=== PATIENT | male | born 1940 | race Caucasian/White ===

== ENCOUNTER → 2019-09-29 10:48 | Outpatient (CLI) | payer SELFPAY | END | disposition home or self-care (01) | LOC: D.LABREF 10:48 | PROVIDERS: ATTEND Surgery | DX: M25.562 Pain in left knee (principal) ==

== ENCOUNTER → 2020-05-28 09:55 | Outpatient (CLI) | payer MEDICARE | END | disposition home or self-care (01) | LOC: D.MRI 09:55 | PROVIDERS: ATTEND Orthopaedic Surgery | DX: S83.232A Complex tear of medial meniscus, current injury, left knee, initial encounter (principal) ==

== ENCOUNTER → 2020-07-07 12:37 | Outpatient (CLI) | payer MEDICARE ==
[2020-06-17 06:04] VITALS: BMI 26.1
[~2020-07-07 12:37] MED LIST: HYDROCODON-ACE1 EA10 PO; PRAVACHOL40 MG PO; VALTREX500 MG PO
== END | disposition home or self-care (01) ==
LOC: D.MRI 12:37
PROVIDERS: ATTEND Clinical Nurse Specialist Family Health
DX: M25.562 Pain in left knee (principal)